=== PATIENT | male | born 1965 | race Asian ===

== ENCOUNTER 2018-03-25 08:32 | Emergency (ER) | payer OTHER ==
--- NOTE | 2018-03-25 08:52 | PDOC ---
History of Present Illness - General Chief Complaint: Chest Pain Stated Complaint: CHEAT PAIN,HEADACHE Time Seen by Provider: 03/25/18 08:51 - History of Present Illness Initial Comments: 03/25/18 09:43 The patient is a 53 year old male with a history of Chronic back pain, migraine who presents for evaluation of headache and chest pain. The patient reports a pressure like headache with associated nausea and vomiting yesterday evening typical of his migraine headaches. He notes some minimal sharp left sided chest pain yesterday evening as well that had gotten progressively worse prompting his presentation to the ED for further evaluation. He reports some associated SOB but otherwise denies fevers, chills, cough, abdominal pain, numbness, tingling, weakness, or changes with urination or bowel movements. Past History - Past Medical History Allergies/Adverse Reactions: Allergies Allergy/AdvReac Type Severity Reaction Status Date / Time No Known Allergies Allergy Verified 03/25/18 08:49 Home Medications: Ambulatory Orders Cyclobenzaprine HCl [Flexeril -] 10 mg PO TID #21 tablet 02/07/13 Hydrocodone Bit/Acetaminophen [Vicodin 5-500mg Tablet -] 1 - 2 tab PO Q6H Metaxalone 800 mg PO ASDIR 02/07/13 Oxycodone HCl/Acetaminophen [Percocet 7.5-325 mg Tablet] 1 - 2 tab PO Q4H #15 tablet 02/07/13 Aspirin [ASA -] 325 mg PO DAILY #30 tablet 03/07/13 Clopidogrel Bisulfate [Plavix -] 75 mg PO DAILY #30 tablet 03/07/13 Simvastatin [Zocor] 20 mg PO HS #30 tablet 03/07/13 levoFLOXacin [Levaquin -] 500 mg PO DAILY #7 tablet 03/07/13 COPD: No - Immunization History Td Vaccination: No - Suicide/Smoking/Psychosocial Hx Smoking Status: Yes Smoking History: Never smoked Years of Tobacco Use: 10 Number of Cigarettes Smoked Daily: 5 'Breaking Loose' booklet given: 03/03/13 Hx Alcohol Use: No Drug/Substance Use Hx: No Substance Use Type: None Review of Systems - Review of Systems Comments:: 03/25/18 09:47 Constitutional: No fevers, chills, fatigue, malaise HEENT: No Rhinorrhea, nasal congestion, visual changes Cardiovascular: Chest pain. No syncope, palpitations, lightheadedness Respiratory: SOB. No Cough, Hemoptysis, Gastrointestinal: Nausea, vomiting. No Abdominal pain, Constipation, Diarrhea, Melena Genitourinary: No Dysuria, Frequency, Urgency, Hesitancy, Hematuria, Flank pain Musculoskeletal: No Myalgia, arthralgia Skin: No rashes, itching, bruising, pallor Neurologic: Headache. No Dizziness, Numbness, Weakness, or Tingling Psychiatric: No Hallucinations. No SI or HI *Physical Exam - Vital Signs Last Vital Signs Temp Pulse Resp BP Pulse Ox 98 F 77 18 180/86 H 97 03/25/18 08:41 03/25/18 08:41 03/25/18 08:41 03/25/18 08:41 03/25/18 08:41 - Physical Exam Comments: 03/25/18 09:48 General Appearance: Nourished. No Apparent Distress HEENT: EOMI, KAMILLA. No Pharyngeal Erythema, Tonsillar Exudate, Tonsillar Erythema Neck: No Cervical Lymphadenopathy Respiratory/Chest: Lungs Clear, Normal Breath Sounds. No Crackles, Rales, Rhonchi, Wheezing Cardiovascular: Regular Rhythm, Regular Rate. No Murmur, Gallops, Rubs Gastrointestinal/Abdominal: Normal Bowel Sounds, Soft. No Guarding, Rebound, Tenderness Musculoskeletal: No CVA Tenderness Extremity: Normal Capillary Refill Integumentary: Normal Color, Dry, Warm Neurologic: poultry hanger II-XII NML intact, Fully Oriented, Alert, Normal Mood/Affect, Normal Response, Motor Strength 5/5. Normal Finger to Nose and Heel to Mcdaniels Moderate Sedation - Procedure Monitoring Vital Signs: Procedure Monitoring Vital Signs Temperature 98 F 03/25/18 08:41 Pulse Rate 77 03/25/18 08:41 Respiratory Rate 18 03/25/18 08:41 Blood Pressure 180/86 H 03/25/18 08:41 O2 Sat by Pulse Oximetry (%) 97 03/25/18 08:41 Heart Score/ECG Review - History History: Slightly suspicious - Electrocardiogram EKG: Normal - Age Age: 45-65 - Risk Factors Risk Factors Heart Score: Yes Smoking History Based on the list above the patient has:: 1-2 risk factors - Troponin Troponin: </= normal limit - Score Heart Score - Total: 2 #1 ECG reviewed & interpreted by me at: 10:05 ED Treatment Course - LABORATORY CBC & Chemistry Diagram: 03/25/18 09:03 03/25/18 09:03 Medical Decision Making - Medical Decision Making 03/25/18 10:10 The patient is a 53 year old male with a history of Chronic back pain, migraine who presents for evaluation of headache and chest pain. Differential includes but is not limited to: Migraine, ACS, Intracranial process, Musculoskeletal, Infectious, Metabolic Derangement. Given the patient's history and physical exam, we will obtain a cbc, cmp, troponin, EKG, chest plain film, head CT to evaluate further. We will treat with iv fluids, tylenol, reglan, benadryl and continue to monitor and reassess while here in the ED. 03/25/18 11:39 CBC, cmp, troponin are unremarkable. Chest plain film is unremarkable as read by our radiologist. Head CT is unremarkable as read by our radiologist. The patient reports improvement in his symptoms. We are comfortable discharging the patient home with primary care provider follow up. We discussed the results , plan, and return precautions with the patient who voiced understanding and is agreeable with the plan. *DC/Admit/Observation/Transfer Diagnosis at time of Disposition: Headache Qualifiers: Headache type: unspecified Headache chronicity pattern: unspecified pattern Intractability: not intractable Qualified Code(s): R51 - Headache Chest pain Qualifiers: Chest pain type: unspecified Qualified Code(s): R07.9 - Chest pain, unspecified - Discharge Dispostion Disposition: HOME Condition at time of disposition: Stable Decision to Admit order: No - Referrals Referrals: Ramandeep Young MD [Primary Care Provider] - - Patient Instructions Printed Discharge Instructions: DI for Atypical Chest Pain, DI for Headache Additional Instructions: Please return to the ER if you experience concerning or worsening symptoms including worsening difficulty breathing, weakness, or chest pain, vomiting, abdominal pain, worsening headache. Your lab results and CT scans were normal here in the ER. You may continue to use tylenol and motrin to help manage your pain at home. Please call to schedule a follow up appointment with your primary care provider within 2-3 days to discuss your ER visit and further management of your symptoms. - Post Discharge Activity
[2018-03-25 08:54] VITALS: BP 180/86; PULSE 77; TEMP 98; BMI 27.6
--- NOTE | 2018-03-25 09:00 | PDOC ---
Attending Attestation - Resident Resident Name: German Carranza - ED Attending Attestation I have performed the following: I have examined & evaluated the patient, The case was reviewed & discussed with the resident, I agree w/resident's findings & plan, Exceptions are as noted - HPI HPI: 03/25/18 10:18 53 yo M presenting to the ER with a complaint of chest pain (left sided), headache which has been present consistently for the past 2 days (consistent wiht his prior migraine) Pt presents to the ER because he noted some vision loss this morning, lasting 10 minutes No prior episodes like this - Physicial Exam PE: 03/25/18 10:15 GENERAL: The patient is in no acute distress. HEAD: Normal EYES: PERRLA, EOMI, sclera anicteric, conjunctiva clear. ENT: Ears normal, nares patent, oropharynx clear without exudates. Moist mucous membranes. NECK: Normal range of motion, supple, no nuchal rigidity LUNGS: Breath sounds equal, clear to auscultation bilaterally. No wheezes, and no crackles. HEART:Regular rate and rhythm, normal S1 and S2 without murmur, rub or gallop. ABDOMEN: Soft, nontender, normoactive bowel sounds. No guarding, no rebound. No masses palpable. EXTREMITIES: Normal range of motion, no edema. NEUROLOGICAL: Cranial nerves II through XII grossly intact. Normal speech. No focal neurological deficits. MUSCULOSKELETAL: c spine tenderness to palpation, no chest wall tenderness to palpation SKIN: Warm, Dry, normal turgor, no rashes or lesions noted. 03/25/18 10:22 - Medical Decision Making 03/25/18 09:00 EKG - Twelve-lead EKG was performed and reviewed by me. There is normal sinus rhythm with a normal rate. The axis is normal. The intervals are normal. There are no ST or T wave abnormalities. Impression: Normal twelve-lead EKG 03/25/18 10:14 Laboratory Tests 03/25/18 03/25/18 03/25/18 09:03 09:03 09:03 WBC 12.3 H Hgb 16.5 Hct 46.8 Plt Count 187 INR 1.03 BUN 12 Creatinine 0.8 Creatine Kinase 92 Troponin I < 0.02 B-Natriuretic Peptide 290.3 H 03/25/18 10:21 Upon re assessment, pt headache has improved Chest pain has resolved He is ambulatory to the bathroom with a steady gait 03/25/18 11:38 CT head negative for acute intracranial pathology, (+) sinusitis Upon re assessment, pt state he feels better Will discharge to home Will ask pt to follow up with PMD
[2018-03-25] MEDS ORDERED: SODIUM CHLORIDE 1,000 ML IV STA (09:01)
[2018-03-25] MEDS ORDERED: ACETAMINOPHEN 1000 MG/100 ML VIAL (NON FORMULARY) IVPB ONE (09:01)
[2018-03-25] MEDS ORDERED: METOCLOPRAMIDE HCL INJECTION 10 MG/2 ML VIAL IVPUSH ONE (09:01)
[2018-03-25] MEDS ORDERED: METOCLOPRAMIDE HCL INJECTION 10 MG/2 ML VIAL ONE (09:06)
[2018-03-25] MEDS ORDERED: ACETAMINOPHEN INJECTION 100 ML IVPB ONE (09:06)
[2018-03-25 09:18] LABS: BASO % 0.4 % (0-2.0); EOS % 1.2 % (0-4.5); HEMATOCRIT 46.8 % (35.4-49); HEMOGLOBIN 16.5 GM/dL (11.7-16.9); LYMPH % 22.6 % (8-40); MCH 30.3 pg (25.7-33.7); MCHC 35.4 g/dl (32.0-35.9); MEAN CELL VOLUME 85.7 fl (80-96); MEAN PLT VOLUME 11.4 fl (7.5-11.1); MONO % 9.8 % (3.8-10.2); PLATELET COUNT 187 K/MM3 (134-434); RBC 5.46 M/mm3 (4.00-5.60); WHITE BLOOD COUNT 12.3 K/mm3 (4.0-10.0)
[2018-03-25 09:37] LABS: ALBUMIN 3.7 g/dl (3.4-5.0); ALK PHOS 126 U/L (45-117); ANION GAP 6 MMOL/L (8-16); BILIRUBIN,TOTAL 0.6 mg/dL (0.2-1); BLOOD UREA NITROGEN 12 mg/dL (7-18); CALCIUM 8.7 mg/dL (8.5-10.1); CHLORIDE 107 mmol/L (98-107); CO2 25 mmol/L (21-32); CREATININE 0.8 mg/dL (0.55-1.3); GLUCOSE,RANDOM 87 mg/dL (74-106); N-TERMINAL BNP 290.3 pg/ml (5-125); POTASSIUM 4.2 mmol/L (3.5-5.1); SGOT/AST 37 U/L (15-37); SGPT/ALT 70 U/L (13-61); SODIUM 139 mmol/L (136-145)
[2018-03-25 09:40] LABS: INR 1.03 (0.83-1.09); PROTHROMBIN TIME (PATIENT) 12.1 SEC (9.7-13.0)
[2018-03-25 09:43] LABS: ACTIVATED PTT 33.7 SECONDS (25.2-36.5)
--- NOTE | 2018-03-25 13:26 | EKG ---
Test Reason : Blood Pressure : / mmHG Vent. Rate : 072 BPM Atrial Rate : 072 BPM P-R Int : 150 ms QRS Dur : 068 ms QT Int : 398 ms P-R-T Axes : 048 006 024 degrees QTc Int : 435 ms NORMAL SINUS RHYTHM NORMAL ECG WHEN COMPARED WITH ECG OF 12-OCT-2007 11:26, NO SIGNIFICANT CHANGE WAS FOUND Confirmed by PARISA SANCHEZ MD ([id number]) on 03/25/2018 1:25:25 PM Referred By: Confirmed By:PARISA SANCHEZ MD
== END 2018-03-25 13:10 | disposition home or self-care (01) ==
LOC: JER 08:32
PROC: 3E033NZ Introduction of Analgesics, Hypnotics, Sedatives into Peripheral Vein, Percutaneous Approach (ICD-10-PCS; principal; 2018-03-25)
PROC: 3E033GC Introduction of Other Therapeutic Substance into Peripheral Vein, Percutaneous Approach (ICD-10-PCS; 2018-03-25)
PROC: 3E033GC Introduction of Other Therapeutic Substance into Peripheral Vein, Percutaneous Approach (ICD-10-PCS; 2018-03-25)
DX: J01.00 Acute maxillary sinusitis, unspecified (principal); G43.909 Migraine, unspecified, not intractable, without status migrainosus; R07.9 Chest pain, unspecified
CPT/HCPCS: 36415; 70450-TC; 71045-TC-FY; 80053; 82550; 83880; 84484; 85025; 85610; 85730; 93005; 93010; 99285-25; J0131; J7030